=== PATIENT | female | born 1975 | race African-American/Black ===

== ENCOUNTER 2018-02-09 20:31 | Emergency (ER) | payer MEDICAID, OTHER ==
[~2018-02-09] VITALS: Ht 170.2 cm; Wt 81.0 kg
[2018-02-09] MEDS ORDERED: IBUPROFEN 200 MG TABLET PO ONE (21:00)
[2018-02-09] MEDS ORDERED: IBUPROFEN 200 MG TABLET ONE (21:05)
[2018-02-09 22:32] VITALS: BP 150/99
== END 2018-02-09 22:34 | disposition home or self-care (01) ==
LOC: ED 21:37
DX: B34.9 Viral infection, unspecified (principal); I10 Essential (primary) hypertension; F17.210 Nicotine dependence, cigarettes, uncomplicated; G43.909 Migraine, unspecified, not intractable, without status migrainosus
CPT/HCPCS: 71045; 93005; 99284

== ENCOUNTER 2018-02-16 23:40 | Emergency (ER) | payer MEDICAID ==
[~2018-02-16] VITALS: Ht 170.2 cm; Wt 78.5 kg
[2018-02-16 23:45] VITALS: BP 130/99
== END 2018-02-17 00:27 | disposition home or self-care (01) ==
LOC: ED 02-17 00:23
DX: G89.29 Other chronic pain (principal); M54.5 Low back pain; I10 Essential (primary) hypertension
CPT/HCPCS: 99282

== ENCOUNTER 2018-11-15 23:32 | Emergency (ER) | payer MEDICAID ==
[~2018-11-15] VITALS: Ht 170.2 cm; Wt 83.0 kg
[2018-11-15 23:37] VITALS: BP 142/97
--- NOTE | 2018-11-15 23:51 | NUR ---
PT AMBULATES FROM TRIAGE TO ROOM WITH STEADY GAIT.
[2018-11-16] MEDS ORDERED: DIAZEPAM 5 MG TABLET ONE (00:13)
[2018-11-16] MEDS ORDERED: KETOROLAC 30 MG/1 ML ONE (00:14)
--- NOTE | 2018-11-16 00:20 | NUR ---
PT MEDICATED PER MAR FOR PAIN.
[2018-11-16] MEDS ORDERED: KETOROLAC 30 MG/1 ML IM ONE (00:30)
[2018-11-16] MEDS ORDERED: DIAZEPAM 5 MG TABLET PO ONE (00:30)
--- NOTE | 2018-11-16 01:37 | NUR ---
TASK RN: ANNA COLLECTED AND WALKED TO LAB
[2018-11-16 01:47] LABS: HCG UR SG 1.023 (1.003-1.030)
[2018-11-16 01:48] LABS: MICROSCOPIC INDICATED
[2018-11-16 01:49] LABS: CULTURE INDICATED? YES
--- NOTE | 2018-11-16 01:49 | NUR ---
PT RESTING IN GURNEY COMFORTABLY AFTER AMBULATION TO RESTROOM WITH STEADY GAIT. LAB AT AT THIS TIME.
--- NOTE | 2018-11-16 02:26 | NUR ---
PT D/C WITH D/C SUMMARY AND SCRIPT. ALL QUESTIONS ANSWERED. PT VERBALIZES UNDERSTANDING OF F/U CARE. PT DENIES ANY OTHER NEEDS AT THIS TIME. PT D/C HOME IN CARE OF DAUGHTER FOR SAFE D/C HOME. PT AMBULATES TO REGISTRATION DESK WITH STEADY GAIT.
== END 2018-11-16 02:29 | disposition home or self-care (01) ==
LOC: ED 11-16 02:23
DX: M54.5 Low back pain (principal); I10 Essential (primary) hypertension
CPT/HCPCS: 36415; 81001; 81025; 84703; 87077; 87086; 87186; 96372; 99283; J1885